=== PATIENT | male | born 1935 | race Caucasian/White ===

== ENCOUNTER 2023-05-29 14:43 | Outpatient (OUT) | payer MEDICARE, SELFPAY ==
[2023-05-29 15:23] LABS: Basophils Percent Auto 0.5 % (0.2-2.0); Eosinophils Absolute Auto 0.6 10^3/uL (0.0-0.7); Eosinophils Percent Auto 6.8 % (0.9-7.0); Hematocrit 29.3 % (42.0-54.0); Hemoglobin 9.4 g/dL (14.0-18.0); Immature Granulocytes Abs Auto 0.03 10^3/uL (0.00-0.03); Immature Granulocytes Pct Auto 0.3 % (0.0-0.5); Lymphocytes Absolute Auto 0.7 10^3/uL (1.2-3.8); Lymphocytes Percent Auto 8.4 % (20.5-60.0); Mean Corpuscular HGB Conc 32.1 g/dL (29.9-35.2); Mean Corpuscular Volume 102.8 fL (80.0-94.0); Mean Platelet Volume 9.7 fL (9.5-13.5); Monocytes Absolute Auto 0.5 10^3/uL (0.3-0.8); Monocytes Percent Auto 6.2 % (1.7-12.0); Neutrophils Absolute Auto 6.8 10^3/uL (1.4-6.5); Neutrophils Percent Auto 77.8 % (43.0-75.0); Platelet Count 250 10^3/uL (150-450); Red Blood Count 2.85 10^6/uL (4.70-6.10); Red Cell Distribution Width 14.4 % (11.0-15.0); White Blood Count 8.7 10^3/uL (4.0-11.0)
[2023-05-29 16:15] LABS: Percent Iron Saturation 19.3 %
[2023-05-29 16:26] LABS: Alanine Aminotransferase 10 U/L (16-63); Albumin Globulin Ratio 0.6; Albumin Level 2.6 g/dL (3.4-5.0); Alkaline Phosphatase 80 U/L (46-116); Anion Gap 16.8; Aspartate Amino Transferase 13 U/L (15-37); BUN Creatinine Ratio 14.4; Bilirubin Total 0.4 mg/dL (0.2-1.0); Calcium 8.5 mg/dL (8.5-10.1); Carbon Dioxide 21.3 mmol/L (21.0-32.0); Chloride 102 mmol/L (98-107); Estimated GFR (African America 40 (>=60); Estimated GFR (Non-African Ame 33 (>=60); Globulin 4.3 g/dL; Glucose 188 mg/dL (74-106); Potassium 5.1 mmol/L (3.5-5.1); Sodium 135 mmol/L (136-145); Total Protein 6.9 g/dL (6.4-8.2)
[2023-05-30 05:10] LABS: CEA 11.5 ng/mL (0.0-4.7)
== END 2023-05-29 14:44 | disposition home or self-care (01) ==
LOC: LAB 14:48
PROVIDERS: PCP Family Medicine
DX: C20 Malignant neoplasm of rectum (principal)
CPT/HCPCS: 36415; 80053; 82378; 82728; 83540; 83550; 85025